=== PATIENT | female | born 1980 | race African-American/Black ===

== ENCOUNTER 2016-08-27 12:13 | Emergency (ER) | payer MEDICAID ==
[2016-02-07 10:07] VITALS: BMI 39.5
[~2016-08-27 12:13] MED LIST: EZFE 200200 MG PO; HYDROCODON-ACE1 EAC7 PO; PRILOSEC20 MG PO; PRINZIDE 10/12.1 TA1 PO; PRINZIDE 10/12.1 TAB PO; PRINZIDE 20/12.1 TAB PO; PROBIOTICS PO; STERAPRED DS 1210 MG PO; TOPROL XL100 MG PO; ZOLOFT50 MG PO
== END 2016-08-27 13:20 | disposition home or self-care (01) ==
LOC: D.ER 12:13
DX: I10 Essential (primary) hypertension (principal)

== ENCOUNTER 2016-10-27 11:34 | Emergency (ER) | payer MEDICAID ==
[2016-02-07 10:07] VITALS: BMI 39.5
[2016-10-27 12:17] LABS: BASOPHILS 0 % (0.0-2.0); EOSINOPHILS 4.2 % (0-7); HEMATOCRIT 36.2 % (36.0-48.0); IMMATURE GRANULOCYTES 0.3 % (0-5); LYMPHOCYTES 17.5 % (15-50); MCH 30.5 pg (26.0-34.0); MCHC 33.1 g/dL (31.0-37.0); MCV 92.1 fL (80.0-100.0); MEAN PLATELET VOLUME 10.1 fL (7.4-10.4); MONOCYTES 4.4 % (2-11); NEUTROPHILS 73.6 % (40-80); PLATELET COUNT 198 10x3/uL (130-400); RBC 3.93 10x6/uL (4.00-5.40); RDW 11.8 % (11.5-14.5); WBC 7.7 10x3/uL (4.8-10.8)
[2016-10-27 12:38] LABS: ALBUMIN 3.1 g/dL (3.4-5.0); ANION GAP 16.8 mmol/L (8-16); BILIRUBIN - TOTAL 0.52 mg/dL (0.2-1.3); CALCIUM 9.1 mg/dL (8.5-10.1); CARBON DIOXIDE 20.8 mmol/L (21.0-32.0); CREATININE - SERUM 1.4 mg/dL (0.6-1.3); POTASSIUM - SERUM 4.6 mmol/L (3.5-5.1)
[2016-10-27 13:35] LABS: APPEARANCE CLOUDY (CLEAR); COLOR YELLOW (YELLOW); LEUKOCYTE ESTERASE 2+ (NEGATIVE); PH 5.5 (5.0-6.0); SPECIFIC GRAVITY 1.015 (1.005-1.020)
[2016-10-27 13:36] LABS: BACTERIA MANY /hpf (NONE SEEN); BILIRUBIN NEGATIVE (NEGATIVE); GLUCOSE NEGATIVE (NEGATIVE); KETONE NEGATIVE (NEGATIVE); MUCUS <1+ /lpf (NONE SEEN); NITRITE POSITIVE (NEGATIVE); PROTEIN 2+ mg/dL (NEGATIVE); UROBILINOGEN NORMAL (NORMAL); WHITE CELLS - URINE >50 /hpf (0-5)
[2016-10-27 16:14] LABS: HCG SERUM POSITIVE (NEGATIVE)
== END 2016-10-27 14:56 | disposition home or self-care (01) ==
LOC: D.ER 11:34
PROVIDERS: Family Medicine
DX: O23.40 Unspecified infection of urinary tract in pregnancy, unspecified trimester (principal); R10.2 Pelvic and perineal pain; I10 Essential (primary) hypertension

== ENCOUNTER 2016-11-18 04:50 | Inpatient (IN) | payer MEDICAID ==
[~2016-11-18] VITALS: Ht 162.6 cm; Wt 105.2 kg
[2016-11-18] MEDS ORDERED: NORMODYNE / TR200 MG PO (05:13)
[2016-11-18] MEDS ORDERED: XANAX0.25 MG PO (05:14)
[2016-11-18 05:15] VITALS: BP 155/95; Ht 162.6 cm; Wt 105.2 kg
[2016-11-18 06:36] LABS: HEMATOCRIT 34.2 % (36.0-48.0); HEMOGLOBIN 11.1 g/dL (12-16); MCH 29.8 pg (26.0-34.0); MCHC 32.5 g/dL (31.0-37.0); MCV 91.9 fL (80.0-100.0); MEAN PLATELET VOLUME 10.6 fL (7.4-10.4); RBC 3.72 10x6/uL (4.00-5.40); RDW 12.2 % (11.5-14.5); WBC 6.9 10x3/uL (4.8-10.8)
[2016-11-18 08:03] LABS: INR 0.9 (0.85-1.17)
[2016-11-18 08:04] LABS: APTT 27.7 SECONDS (22.8-39.4)
[2016-11-18 08:05] LABS: D-DIMER-QUANTITATIVE 0.76 ug/mLFEU (0.20-0.54)
[2016-11-18 10:17] LABS: APPEARANCE CLEAR (CLEAR); BILIRUBIN NEGATIVE (NEGATIVE); COLOR YELLOW (YELLOW); GLUCOSE NEGATIVE (NEGATIVE); KETONE NEGATIVE (NEGATIVE); LEUKOCYTE ESTERASE NEGATIVE (NEGATIVE); NITRITE NEGATIVE (NEGATIVE); PH 5.5 (5.0-6.0); PROTEIN NEGATIVE (NEGATIVE); UROBILINOGEN NORMAL (NORMAL)
[2016-11-18 23:53] VITALS: BP 148/76
--- NOTE | 2016-11-18 23:55 | NUR ---
Pt to room 1273 from OR with OR crew at bedside. Report rcvd from PACU. Pt drowsy. Easy to wake with stimulation. Denies pain at this time. Reviewed use of WIRE LOOP MACHINE OPERATOR button. VS obtained. RR even and unlabored @ 15. On RA. CTA bilaterally. Pt sleeping through assessment. Fundus firm and midline 2FB below umbillicus. Scant-small amount of lochia rubra noted. No clots. IV to R wrist infusing. No redness/edema. LR infusing @ 125ml/hr and Dilauded derrick engineer in place. SCDs in place to BLE. Has generalized edema to BLE. Amaral cath in place and draining below level of bladder. Ice water and lemon [place]kawa drink provided. Pt did not wake up to drink any fluids. Call light left in reach. Room phone placed on siderail. Bed in low position and locked. SR up x2. Bedside table in reach. Pt encouraged to call for any needs. No questions voiced.
[2016-11-19] VITALS (11 sets, daily range): BP systolic 122–165; BP diastolic 69–95
--- NOTE | 2016-11-19 00:25 | NUR ---
vag bleeding remains scant-small with no clots noted. fundus firm.
--- NOTE | 2016-11-19 00:40 | NUR ---
fundus firm. lochia scant-small. bud pad changed. pt woke up during fundal massage. denies pain. immediately went back to sleep. continues to be very drowsy.
--- NOTE | 2016-11-19 02:00 | NUR ---
FUNDUS MASSAGED. FIRM AND MIDLINE 2FB BELOW UMB. LOCHIA SCANT-SMALL AMOUNT. NO CLOTS PRESENT. PT REPORTING PAIN IN LLE. REPORTS FEELING THE PAIN IN CALF MUSCLE WHEN PERFORMING HOMANS SIGN. PULSES +2 IN ALL AREAS OF LLE. MILD GENERALIZED EDEMA NOTED TO LLE. DENIES PAIN TO RLE. HOMANS SIGN TO RLE NEGATIVE. BLE WARM TO TOUCH. CAP REFILL <[address] FRAIRE NOTIFIED OF ABOVE AND PTS RECENT BP READINGS. NEW ORDERS RCVD.
--- NOTE | 2016-11-19 02:24 | NUR ---
CALL TO LAST MODEL MAKER FOR LABETOLOL ORDER.
--- NOTE | 2016-11-19 03:12 | NUR ---
Radiology here for US of LLE.
--- NOTE | 2016-11-19 04:13 | NUR ---
Pt repositioned to L side. Pillow behind back for comfort. Call light in reach. Bed low. SR upx2.
--- NOTE | 2016-11-19 05:30 | NUR ---
bud pad and underpad changed. scant-small amount of lochia noted. no clots.
--- NOTE | 2016-11-19 05:47 | NUR ---
Pt repositioned to R side. Denies any other needs.
[2016-11-19 06:14] LABS: RAPID PLASMA REAGIN Non Reactive (Non Reactive)
[2016-11-19 07:04] LABS: BASOPHILS 0.1 % (0.0-2.0); EOSINOPHILS 3.2 % (0-7); HEMATOCRIT 31.4 % (36.0-48.0); HEMOGLOBIN 10.3 g/dL (12-16); IMMATURE GRANULOCYTES 0.1 % (0-5); LYMPHOCYTES 19.9 % (15-50); MCH 30.2 pg (26.0-34.0); MCHC 32.8 g/dL (31.0-37.0); MCV 92.1 fL (80.0-100.0); MEAN PLATELET VOLUME 10.1 fL (7.4-10.4); MONOCYTES 8.1 % (2-11); NEUTROPHILS 68.6 % (40-80); PLATELET COUNT 187 10x3/uL (130-400); RBC 3.41 10x6/uL (4.00-5.40); RDW 12.2 % (11.5-14.5); WBC 7.4 10x3/uL (4.8-10.8)
--- NOTE | 2016-11-19 07:15 | NUR ---
dr pryor in unit- spoke with pt. new orders received.
--- NOTE | 2016-11-19 08:15 | NUR ---
pt drowsy- awakened and verbal responses appro to questions. states "im just uncomfortable" no co of pain. small to mod lochia noted on pad. pad changed. reg diet served.
--- NOTE | 2016-11-19 08:20 | NUR ---
dilaudid court advocate turned off at this time.
--- NOTE | 2016-11-19 09:25 | NUR ---
pt rings call light. co pressure pulling pain lower abd- rates pain a 7 on scale of 0-10. states wants pain medication. drank broth and half of jello for breakfast.
--- NOTE | 2016-11-19 10:03 | NUR ---
pt iv changed to saline lock and flushed with 10ccns. wadsworth cath removed post bulb deflated- 300cc urine sl cloudy in bag.
--- NOTE | 2016-11-19 10:20 | NUR ---
pt states feels like needs to use the bathroom to void after wadsworth cath removed. ambulated to bathroom and tolerated well. unable to void- bud care done. pt ambulates about in room then returns to bed. tolerated well.
--- NOTE | 2016-11-19 10:33 | NUR ---
sitting on side of bed talking with visitors.
--- NOTE | 2016-11-19 10:33 | NUR ---
Dr Garcia contacted to verify methergine order. Order received to d/c mehtergine, also pt may d/c home if able to eat lunch and shower without difficulty. pt will need to follow up in clinic with Dr Garcia next week.
--- NOTE | 2016-11-19 11:40 | NUR ---
PT REQUESTING BABY BE BROUGHT TO ROOM. BABY TO ROOM.
--- NOTE | 2016-11-19 12:30 | NUR ---
Pt calls for nurse to come and pick up. This rn to room, pt signed off for consent for hospital disposal of infant. She c/o of back "aching" but denies need for pain med. Warm blanket offered and pt is agreeable. Range brought to room and pt position self to right side, warm blanket laid across lower back. Lights turned off per her request, states she just wants to sleep. Side rails up x 2 with phone and call light in reach.
--- NOTE | 2016-11-19 14:45 | NUR ---
Pt calls out with request for motrin. Upon entering the room pt is sitting up on side of the bed texting on the phone. Motrin given as charted on emar for pain that she describes as "bad cramps" and rates at 4/10. Pt denies having gotten up to the bathroom to void. Explained why she needed to try and void at this time to aid in pain relief, amb to bathroom without assistance and voids 400ml. Warm wet wash cloths provided for bud care since she denies wanting to take a shower. Bud pad and panties also provided. Amb back to bed and turns to her left side. Ask that when she wakes or feels better and would like to shower before discharge to please call for nurse. Pt does not verbally respond but does shake her head. Side rails up x 2 with phone and call light within her reach.
--- NOTE | 2016-11-19 14:45 | NUR ---
SALINE LOCK REMOVED WITH CATH INTACT- PRESSURE HELD- BANDAIDE APPLIED PER Arvind CHAND RN.
--- NOTE | 2016-11-19 16:20 | NUR ---
PT AND FRIEND AMB IN HALLS AND TO UNIT DESK, PT ASKING ABOUT INFO CARD ON . THIS IS GIVEN TO PT AND ALSO EXPLAINED THAT PRINTED INSTRUCTIONS FOR HOME CARE AFTER DISCHARGE GIVEN TO PT AND ASK THAT PT CALL WHEN READY TO LEAVE SO THAT ADDITIONAL INSTRUCTIONS COULD BE GONE OVER. PT FRIEND BECOMES UPSET AND QUESTIONS WHY WE WANT HER TO LEAVE WHEN DR FRAIRE TOLD HER SHE COULD STAY AND REST FOR 2-3 DAYS. NEITHER THIS RN OR Naomi RADER RN UNDERSTAND OR KNOW ABOUT THIS PLAN OF CARE. ATTMEPT TO EXPLAIN THAT DR FRAIRE CAME THRU EARLY THIS AM AND HIS ORDER WAS COULD DISCHARGE IF PT TOLERATES REGULAR DIET, AMBULATE AND PAIN CONTROL WITH PO PAIN MED. PT THAN BECOMES UPSET AND INSIST THAT SHE KNEW WHAT WAS SAID THIS MORNING AND SHE WAS TOLD SHE COULD STAY FOR REST AND RECOVERY UNTIL WEDNESDAY OR WEDNESDAY. EXPLAINED THAT WE WOULD ATTEMPT TO CONTACT DR FRAIRE BUT PLEASE KNOW THAT HE WAS NOT CASHIER HOST/HOSTESS TONIGHT, ALSO NOTIFIED NURSE OPTOELECTRONIC TECHNICIAN TO COME AND SPEAK WITH THEM.
--- NOTE | 2016-11-19 16:30 | NUR ---
VERIFIED WITH DR MITCHELL THAT SHE WAS NOT GIVEN REPORT ON PT. PER STEPHEN SHE WAS NOT ADVISED OF PT SITUATION AND WAS UNDER THE UNDERSTANDING SHE WAS TO BE DISCAHRGED. DR FRAIRE CALLED AND REPORT GIVEN THAT PT WAS UPSET ABOUT NURSE TRYING TO DISCHARGE, AND THAT SHE WAS TO BE ALLOWED TO STAY UNTIL WEDNESDAY. DR FRAIRE STATES THAT HE TOLD PT THAT SHE WOULD DISCHARGE TODAY IF CRITIERIA MEET IF NOT SHE WOULD STAY TILL IN THE AM. CONFIRMED WITH JUNO THAT YES PT WAS EATING WITHOUT NAUSEA OR VOMITING, VOIDS WITHOUT COMPLAINT AND HAS BEEN RATING PAIN NO HIGH THAN 4/10, ALSO THAT BLEEDING WAS LIGHT AND NO CLOTS. PER DR FRAIRE PT MAY STAY TONIGHT IF SHE WISHES BUT THAN BE DISCHARGED IN THE AM.
--- NOTE | 2016-11-19 16:45 | NUR ---
THIS NURSE ALONG WITH Duarte LIU RN, CONSULTANT DIETITIAN, TO ROOM TO EXPLAIN TO PT AND FRIEND/FAMILY PLAN OF CARE AFTER SPEAKING TO DR FRAIRE. APPOLIGIZE TO PT FOR ANY UPSET THAT MIGHT HAVE BEEN CAUSED BY NURSES, ALSO TOLD PT THAT DR FRAIRE WAS CONTACTED AND HE SAID THAT SHE COULD STAY TONIGHT IF NEEDED BUT HE WOULD THAN D/C IN THE AM, PT STANDING AT BEDSIDE TALKING ON THE PHONE, SHE DOES NOT ALLOW ANYTHING ELSE TO BE SAID BEFORE SHE SAYS "I JUST WANT OUT OF HERE, IT IS TO MUCH, I NEED TO GO HOME." Duarte LIU RN STATES SHE WILL BE BACK WITH D/C PAPERWORK FOR HER TO SIGN.
--- NOTE | 2016-11-19 17:15 | NUR ---
D/C INSTRUCTIONS GIVEN AND EXPLAINED TO PT. QUESTIONS ANSWERED. RX X3 TO PT. HOME WITH VISITOR. PT DECLINED W/C. THIS NURSE WALKED WITH PT TO CAR.
--- NOTE | 2016-11-26 06:50 | OP ---
PATIENT NAME: SUKHDEEP PORTILLO MEDICAL RECORD: [id number] :80 LOCATION:[id number] ADMISSION DATE:11/18/16 SURGEON: EDWARD FRAIRE MD DATE OF OPERATION: 11/18/2016 PREOPERATIVE DIAGNOSES: 1. Intrauterine demise at approximately 18 weeks. 2. Retained products of conception. POSTOPERATIVE DIAGNOSES: 1. Intrauterine demise at approximately 18 weeks. 2. Retained products of conception. PROCEDURE: Delivery of nonviable fetus via vaginal delivery followed by curettage of retained products of conception. ESTIMATED BLOOD LOSS: 300 cc. INTRAVENOUS FLUIDS: Per anesthesia record. FINDINGS: 1. Nonviable 18-week male fetus delivered en caul. 2. Retained products of placental tissue. COMPLICATIONS: None apparent. DESCRIPTION OF PROCEDURE: Following delivery of the fetus, the placenta had not delivered within 45 minutes. The patient was at that point taken to the operating room after being prepped and draped. The thorough exam was performed digitally and the placenta was found to be densely adherent. Using ring forceps, the Ross curette and the suction curette, the placental was removed under direct visualization using the handheld ultrasound. Fragments of placental tissue were removed until an endometrial stripe had reappeared and was somewhat regular. Following the end of the case, minimal bleeding was noted. Digital exploration of the uterine cavity was performed and the vast majority of the placental tissue was felt to be removed and with minimal bleeding. Although the placenta had been removed in fragments, it was felt that it had been removed for the most part in its entirety based on ultrasound findings at that time. The patient was given Methergine in the operating room with plans postop to check quant levels and to monitor bleeding carefully and monitor for infection. The patient was started on Invanz 1 gram preop. TRANSINT:[id number] Voice Confirmation ID: [id number] DOCUMENT ID: [id number] EDWARD FRAIRE MD at 0649 CC: [id number] DICTATION DATE: 11/18/162320 ELECTRON BEAM WELDER: 11/19/16 0208 [place] [address]
== END 2016-11-19 17:15 | disposition home or self-care (01) | DRG 767 ==
LOC: D.LD 04:50
PROVIDERS: ADMIT Obstetrics & Gynecology
PROC: 10D17ZZ Extraction of Products of Conception, Retained, Via Natural or Artificial Opening (ICD-10-PCS; 2016-11-18)
PROC: 10E0XZZ Delivery of Products of Conception, External Approach (ICD-10-PCS; principal; 2016-11-18 22:00)
DX: O36.4XX0 Maternal care for intrauterine death, not applicable or unspecified (principal); O16.4 Unspecified maternal hypertension, complicating childbirth; O99.214 Obesity complicating childbirth; Z3A.18 18 weeks gestation of pregnancy; Z37.1 Single stillbirth; Z64.1 Problems related to multiparity; O73.1 Retained portions of placenta and membranes, without hemorrhage

== ENCOUNTER 2020-05-20 05:20 | Day surgery (SDC) | payer MEDICAID ==
--- NOTE | 2020-05-17 13:21 | HP ---
PATIENT: ERIC PORTILLO MEDICAL RECORD: [id number] ACCOUNT: [id number] LOCATION:[facility] : 80 ADMISSION DATE: 05/20/20 PCP: LORI GONZALES MD HISTORY AND PHYSICAL EXAMINATION HISTORY OF PRESENT ILLNESS: Eric is 39. She has had chronic problems with sinusitis and nasal polyposis. She is being admitted for sinus surgery. PAST MEDICAL HISTORY: Includes hypertension. PAST SURGICAL HISTORY: Includes sinus surgery and polypectomy in 2012. CURRENT MEDICATIONS: Metoprolol, lisinopril, hydrochlorothiazide, sertraline. ALLERGIES: No known drug allergies. PHYSICAL EXAMINATION: GENERAL: She is healthy-appearing, normal voice. She has a desire to breathe through her mouth. FACE: Normal, symmetric, no lesions. EYES: Sclerae and conjunctivae are normal. EARS: Canals and TMs are normal. NOSE: Massive bilateral nasal polyposis. ORAL CAVITY AND OROPHARYNX: Tongue protrudes in midline. Pharynx normal. NECK: No masses, no adenopathy. CHEST: Clear. CARDIOVASCULAR: Regular rate and rhythm, no murmur. EXTREMITIES: Normal. IMPRESSION: Bilateral massive nasal polyposis, chronic sinusitis. PLAN: Bilateral middle meatal antrostomy, bilateral ethmoidectomy, bilateral inferior turbinate reduction, bilateral endoscopic nasal polypectomy. TRANSINT:[id number] Voice Confirmation ID: [id number] DOCUMENT ID: [id number] LORI GONZALES MD at 1321 CC: [id number] DICTATION DATE: 05/16/20 1401 TUBE SORTER: 05/16/20 1439 [id number] [place] [address]
[~2020-05-20] VITALS: Ht 162.6 cm; Wt 112.5 kg
--- NOTE | ~2020-05-20 | OP ---
PATIENT NAME: SUKHDEEP PORTILLO MEDICAL RECORD: [id number] :80 LOCATION:[facility] ADMISSION DATE: SURGEON: DRE BALES MD DATE OF OPERATION: 05/20/2020 PREOPERATIVE DIAGNOSES: Pansinusitis, nasal obstruction, massive nasal polyposis, bilateral turbinate hypertrophy, chronic maxillary and ethmoid sinusitis. PROCEDURE: Bilateral endoscopic ethmoidectomy, bilateral endoscopic middle meatal antrostomies, bilateral inferior turbinate reduction, and bilateral endoscopic nasal polypectomy. SURGEON: Dre Bales MD ANESTHESIA: General orotracheal. BLOOD LOSS: Less than 20 mL. SPECIMENS: Polyps bilaterally and thick green solid material from the ethmoid cavities bilaterally. NASAL PACKING: None. COMPLICATIONS: None. DISPOSITION: Recovery stable. DESCRIPTION OF PROCEDURE: She was brought to the operating room, placed in supine position, sedated and intubated by anesthesia. The table was turned 90 degrees. Head drape was applied. She was positioned for sinus surgery, prepped and draped in usual fashion. Both sides of the nose were examined using a headlight and nasal speculum. She had been decongested with Afrin preoperatively, both inferior turbinates and really was not much visibility in the nose, just the polyps, were injected with a total of 1 mL of 1% lidocaine with 1:100,000 epinephrine and 3 Afrin pledgets were placed in each side of the nose. After waiting for decongestion, the left side was addressed first. All Afrin pledgets were removed. Microdebrider was inserted to remove some of the anterior polyps just for visualization. Large cup forceps were used to grasp and remove the large pieces of polyps for specimen. Then, the microdebrider was used to proceed posteriorly just to be able to visualize the middle turbinate, which was involved with polyposis as well. Polyps medial and lateral to the middle turbinate filling the middle meatus all the way back to the nasopharynx, really filling the nasopharynx coming from the superior meatus. This was taken down in stages just to suction out, removing massive amounts of nasal polyp. Then, there in the ethmoid cavity again was full of massive nasal polyposis as well as thick green solid viscous material, some of this was sent for path and cultures. The maxillary sinus was full of just polypoid tissue. Huge boggy polyps were removed, but there were no signs of infection or material in that sinus. After all that was complete, some Afrin pledgets were placed in that side of the nose and then the right side was addressed. Again, all the Afrin pledgets were removed. Again, massive nasal polyposis. Large cup forceps were used to remove some passenger service representative large polyps for specimen. Then, the microdebrider was inserted just to remove massive nasal polyps from the entire nasal cavity so I could visualize the inferior middle turbinate all the way back OPERATIVE REPORT [id number] SUKHDEEP PORTILLO to the nasopharynx and clean out the middle meatus. Then, the ethmoid cavity was again completely full of polyp and this thick green material, some of which was sent for specimen as well. Followed all the way back to the sphenoid sinus on that side. Extensive polyposis. Again, massive polyps in the maxillary sinus were suctioned out and removed. Once that was completed, Afrin pledgets were placed in there. Then, both sides of the nose were examined. The nasopharynx was suctioned. All the Afrin pledgets were removed and then I was able to clean up some of the smaller polyps, clean off the inferior middle turbinate some of the polypoid changes. Suction cautery to stop some of the bleeding on the inferior turbinates from the turbinate reduction, but that is all that was needed as far as cautery. I cleaned up the medial and lateral sides of the middle turbinate. Extensive material in the superior meatus and medial to the middle turbinate on the right side with again more of this thick solid green material suctioned out, irrigated. Then, I irrigated with curved olive tip suction in the ethmoids, maxillary sinuses repeatedly, rinsing everything out. Really, no significant bleeding at this point. I carefully visualized everything and cleaned up small bone fragments and pieces of polypoid material until everything was clean and open. I used some FloSeal in the nose on both sides, suctioned out the nasopharynx. Exam of her eyes was normal. She was awakened, extubated, and transported to recovery in good condition. No complications. NTS:[id number] Voice Confirmation ID: [id number] DOCUMENT ID: [id number] DRE BALES MD CC: [id number] DICTATION DATE: 05/20/201019 DUMP GROUNDS CHECKER: 05/20/202121 [facility] 05/20/20 [facility] [address] [place] [address]
[~2020-05-20 05:20] MED LIST changes: +AMBIEN10 MG PO; +METOPROLOL TART50 MG PO; +NORMODYNE / TR200 MG PO; +NORVASC10 MG PO; +XANAX0.25 MG PO
[2020-05-20 06:22] LABS: HCG SERUM NEGATIVE (NEGATIVE)
[2020-05-20 06:39] VITALS: BP 141/86; Ht 162.6 cm; Wt 112.5 kg
[2020-05-20 06:49] LABS: MCH 30.4 pg (26.0-34.0); MCHC 32.4 g/dL (31.0-37.0); MCV 93.7 fL (80.0-100.0); MEAN PLATELET VOLUME 10.2 fL (7.4-10.4); RBC 3.95 10x6/uL (4.00-5.40); RDW 12.2 % (11.5-14.5); WBC 6.9 10x3/uL (4.8-10.8)
--- NOTE | 2020-05-20 10:20 | NUR ---
PATIENT C/O CHEST PAIN. WITHOUT RADIATION INTO ANY OTHER AREA. DENIES SHORTNESS OF BREATH OR NAUSEA. DR WYATT CALLED TO BEDSIDE. AWAITING FURTHER ORDERS.
--- NOTE | 2020-05-20 12:05 | NUR ---
1203 PT RATES HER PAIN A 5 OUT OF 10 BUT PT REMAINS VERY DROWSY FROM IV MORPHINE GIVEN IN PACU.
--- NOTE | 2020-05-20 12:39 | NUR ---
1235 IV DC'D WITH CATH INTACT BY RHONA JAQUEZ RN.PT STATES READY FOR RELEASE. DC INSTS. REVIEWED BY RHONA JAQUEZ RN, RELEASED IN WC, DAUGHTER [employer] [facility].
== END 2020-05-20 12:35 | disposition home or self-care (01) ==
LOC: D.OPS 05:20 → D.PAN 07:45 → D.OPS 07:45 → D.PAN 08:00 → D.OPS 08:00
PROVIDERS: Anesthesiology; ATTEND Otolaryngology
DX: J32.4 Chronic pansinusitis (principal); J34.89 Other specified disorders of nose and nasal sinuses; J33.9 Nasal polyp, unspecified; J34.3 Hypertrophy of nasal turbinates; J32.0 Chronic maxillary sinusitis; J32.2 Chronic ethmoidal sinusitis; I10 Essential (primary) hypertension